=== PATIENT | female | born 1990 | race Two or more races ===

== ENCOUNTER 2021-12-19 19:23 | Emergency (ER) | payer OTHER ==
[~2021-12-19] VITALS: Ht 160 cm; Wt 54.4 kg
[2021-12-19] MEDS ORDERED: PRENATAL + DHA1 EAC1 (19:33)
== END 2021-12-19 22:32 | disposition home or self-care (01) ==
LOC: ER 19:23
DX: O20.9 Hemorrhage in early pregnancy, unspecified (principal); Z3A.10 10 weeks gestation of pregnancy; Z88.2 Allergy status to sulfonamides; Z91.013 Allergy to seafood

== ENCOUNTER 2022-01-12 15:39 | Outpatient (CLI) | payer OTHER ==
[~2022-01-12 15:39] MED LIST: PRENATAL + DHA1 EAC1
== END 2022-01-12 16:42 | disposition home or self-care (01) ==
LOC: PRENATAL 15:39
PROVIDERS: ATTEND Obstetrics & Gynecology Maternal & Fetal Medicine
DX: Z76.1 Encounter for health supervision and care of foundling (principal)

== ENCOUNTER 2022-03-05 13:14 | Outpatient (CLI) | payer OTHER | END 2022-03-05 14:18 | disposition home or self-care (01) | LOC: PRENATAL 13:14 | PROVIDERS: ATTEND Obstetrics & Gynecology Maternal & Fetal Medicine | DX: O35.9XX0 Maternal care for (suspected) fetal abnormality and damage, unspecified, not applicable or unspecified (principal); O35.3XX0 Maternal care for (suspected) damage to fetus from viral disease in mother, not applicable or unspecified; Z3A.20 20 weeks gestation of pregnancy ==

== ENCOUNTER 2022-07-09 14:45 | Inpatient (IN) | payer OTHER ==
[~2022-07-09] VITALS: Ht 160 cm; Wt 68.0 kg
== END 2022-07-17 12:57 | disposition home or self-care (01) | DRG 788 ==
LOC: OB/GYN 07-14 06:32 → LDR 07-14 06:32 → OB/GYN 07-14 11:23
PROVIDERS: ADMIT Obstetrics & Gynecology; ATTEND Obstetrics & Gynecology
PROC: 4A1HXCZ Monitoring of Products of Conception, Cardiac Rate, External Approach (ICD-10-PCS; 2022-07-15)
PROC: 3E0P7VZ Introduction of Hormone into Female Reproductive, Via Natural or Artificial Opening (ICD-10-PCS; 2022-07-15)
PROC: 3E033VJ Introduction of Other Hormone into Peripheral Vein, Percutaneous Approach (ICD-10-PCS; 2022-07-15)
PROC: 10D00Z1 Extraction of Products of Conception, Low, Open Approach (ICD-10-PCS; principal; 2022-07-15 13:15)
DX: O41.03X0 Oligohydramnios, third trimester, not applicable or unspecified (principal); Z3A.39 39 weeks gestation of pregnancy; Z37.0 Single live birth; Z20.822 Contact with and (suspected) exposure to COVID-19